=== PATIENT | male | born 2000 | race Caucasian/White ===

== ENCOUNTER 2022-10-13 00:21 | Emergency (ER) | payer OTHER ==
[~2022-10-13] VITALS: Ht 182.9 cm; Wt 70.5 kg
[2022-10-13 05:40] VITALS: BP 117/74; TEMP 97; O2SAT 100
[2022-10-13] MEDS ORDERED: MEDR4PAK PO (09:36)
[2022-10-13] MEDS ORDERED: CYCL-707 PO (09:36)
[2022-10-13] MEDS ORDERED: LIDO5DIS41 TD (09:36)
== END 2022-10-13 09:59 | disposition home or self-care (01) ==
LOC: M ED 00:21
DX: M54.50 Low back pain, unspecified (principal); M54.30 Sciatica, unspecified side; Z79.891 Long term (current) use of opiate analgesic; Z79.899 Other long term (current) drug therapy

== ENCOUNTER 2023-05-03 12:57 | Emergency (ER) | payer OTHER ==
[~2023-05-03] VITALS: Ht 185.4 cm; Wt 79.5 kg
[~2023-05-03 12:57] MED LIST: CYCL-707 PO; LIDO5DIS41 TD; MEDR4PAK PO
[2023-05-03 14:33] LABS: BASO % 0.1 % (0.0-1.0); EOS % 0.1 % (0.0-3.0); HEMATOCRIT 43.5 % (42.0-52.0); HEMOGLOBIN 14.9 g/dl (13.5-17.5); LYMPH # 0.8 10^3/uL (1.5-5.0); LYMPH % 9.9 % (24.0-44.0); MEAN CORPUSCULAR HEMOGLOBIN 30.7 pg (27.0-33.0); MEAN CORPUSCULAR HGB CONC 34.3 g/dl (32.0-36.5); MEAN CORPUSCULAR VOLUME 89.5 fl (80.0-96.0); MONO # 0.4 10^3/uL (0.0-0.8); MONO % 4.5 % (2.0-8.0); NEUTROPHILS # 6.8 10^3/uL (1.5-8.5); PLATELET COUNT, AUTOMATED 237 10^3/uL (150-450); RED BLOOD COUNT 4.86 10^6/uL (4.30-6.10); WHITE BLOOD COUNT 8.1 10^3/uL (4.0-10.0)
[2023-05-03 15:04] LABS: ETHYL ALCOHOL (ETHANOL) 0.162 % (0.000-0.010)
[2023-05-03 15:05] LABS: CPK CREATINE PHOSPHOKINASE 105 U/L (46-171)
[2023-05-03 15:06] LABS: ALBUMIN 4.5 G/DL (3.2-5.2); ALKALINE PHOSPHATASE 77 U/L (46-116); ALT/SGPT 33 U/L (7.0-40); AST/SGOT 16 U/L (<34); BILIRUBIN,DIRECT 0.2 MG/DL (<0.4); BILIRUBIN,TOTAL 0.6 MG/DL (0.3-1.2); BLOOD UREA NITROGEN 12 MG/DL (9-23); CALCIUM LEVEL 9.3 MG/DL (8.5-10.1); CARBON DIOXIDE LEVEL 27 MMOL/L (20-31); CHLORIDE LEVEL 104 MMOL/L (98-107); CREATININE FOR GFR 0.87 MG/DL (0.70-1.30); GLOMERULAR FILTRATION RATE > 60.0 (>60); GLUCOSE, FASTING 107 MG/DL (60-100); SALICYLATE LEVEL < 3.0 MG/DL (<30); SODIUM LEVEL 139 MMOL/L (136-145); TOTAL PROTEIN 7.4 G/DL (5.7-8.2)
[2023-05-03 15:08] LABS: THYROID STIMULATING HORMONE 1.899 uIU/ML (0.55-4.78)
[2023-05-03] MEDS: MULTIVITAMIN -ADULT INJECTION 10 ML, THIAMINE INJection 100 MG, FOLIC ACID 1 MG in NS 1... IV ONE (15:35)
[2023-05-03] MEDS: ONDANSETRON 4MG 2ML VIAL IV ONE (15:35)
[2023-05-03] MEDS: LR 1,000 ML IV ONE (15:37)
[2023-05-03] MEDS ORDERED: THIA100T7 PO (17:12)
[2023-05-03] MEDS ORDERED: FOLI1TAB11 PO (17:12)
[2023-05-03 17:13] LABS: AMPHETAMINES LEVEL URINE NEGATIVE (NEGATIVE); BARBITURATES URINE NEGATIVE (NEGATIVE); BENZODIAZEPINES URINE NEGATIVE (NEGATIVE); CANNABINOIDS URINE NEGATIVE (NEGATIVE); COCAINE METABOLITE URINE NEGATIVE (NEGATIVE); METHADONE URINE NEGATIVE (NEGATIVE); OPIATES URINE NEGATIVE (NEGATIVE); PHENCYCLIDINE URINE NEGATIVE (NEGATIVE)
[2023-05-03 17:28] VITALS: BP 112/58; TEMP 97.6; O2SAT 97
== END 2023-05-03 17:40 | disposition home or self-care (01) ==
LOC: M ED 12:57
DX: F10.129 Alcohol abuse with intoxication, unspecified (principal); Z79.899 Other long term (current) drug therapy
CPT/HCPCS: 80048; 80076; 80143; 80307; 82077; 82550; 83605; 84443; 85025; 94760; 96365; 96366; 96375; 99284; J2405; J3411

== ENCOUNTER 2023-05-05 10:25 | Emergency (ER) | payer OTHER ==
[~2023-05-05] VITALS: Ht 185.4 cm; Wt 74.4 kg
[~2023-05-05 10:25] MED LIST changes: +FOLI1TAB11 PO; +THIA100T7 PO
[2023-05-05 12:30] LABS: BASO % 0.6 % (0.0-1.0); EOS # 0.2 10^3/uL (0.0-0.5); EOS % 4.5 % (0.0-3.0); HEMOGLOBIN 15.4 g/dl (13.5-17.5); LYMPH # 2.2 10^3/uL (1.5-5.0); LYMPH % 41.4 % (24.0-44.0); MEAN CORPUSCULAR HGB CONC 34.2 g/dl (32.0-36.5); MEAN CORPUSCULAR VOLUME 90.7 fl (80.0-96.0); MONO # 0.6 10^3/uL (0.0-0.8); MONO % 10.7 % (2.0-8.0); NEUTROPHILS # 2.3 10^3/uL (1.5-8.5); NEUTROPHILS % 42.6 % (36.0-66.0); PLATELET COUNT, AUTOMATED 240 10^3/uL (150-450); RED BLOOD COUNT 4.96 10^6/uL (4.30-6.10); WHITE BLOOD COUNT 5.3 10^3/uL (4.0-10.0)
[2023-05-05 12:40] LABS: INR 1.2; PROTHROMBIN TIME 14.9 SECONDS (12.5-14.5)
[2023-05-05 12:41] LABS: PARTIAL THROMBOPLASTIN TIME 30.5 SECONDS (24.8-34.2)
[2023-05-05 12:53] LABS: LIPASE 28 U/L (12-53)
[2023-05-05 12:54] LABS: AMYLASE 58 U/L (30-118)
[2023-05-05 12:55] LABS: ALBUMIN 4.4 G/DL (3.2-5.2); ALKALINE PHOSPHATASE 87 U/L (46-116); ALT/SGPT 29 U/L (7.0-40); AST/SGOT 13 U/L (<34); BILIRUBIN,DIRECT 0.3 MG/DL (<0.4); BILIRUBIN,TOTAL 0.8 MG/DL (0.3-1.2); BLOOD UREA NITROGEN 15 MG/DL (9-23); CALCIUM LEVEL 9.5 MG/DL (8.5-10.1); CARBON DIOXIDE LEVEL 34 MMOL/L (20-31); CHLORIDE LEVEL 104 MMOL/L (98-107); CREATININE FOR GFR 0.87 MG/DL (0.70-1.30); GLOMERULAR FILTRATION RATE > 60.0 (>60); GLUCOSE, FASTING 78 MG/DL (60-100); POTASSIUM SERUM 3.5 MMOL/L (3.5-5.1); SODIUM LEVEL 143 MMOL/L (136-145); TOTAL PROTEIN 7.3 G/DL (5.7-8.2)
[2023-05-05 13:05] LABS: RSV AMPLIFICATION NEGATIVE (NEGATIVE)
[2023-05-05 14:00] VITALS: TEMP 96.7
[2023-05-05] MEDS ORDERED: ISOVUE-370 76% 100ML VIAL As Ordered ONE (14:05)
[2023-05-05 14:25] LABS: ETHYL ALCOHOL (ETHANOL) < 0.003 % (0.000-0.010)
[2023-05-05 14:26] LABS: SALICYLATE LEVEL < 3.0 MG/DL (<30)
[2023-05-05] MEDS: NS 1,000 ML IV ONE (14:33)
[2023-05-05] MEDS: LIDOCAINE 2% 5ML JELLY UROJET TOP ONE (15:29)
[2023-05-05 16:00] VITALS: BP 129/74; O2SAT 98
[2023-05-05 16:01] LABS: AMPHETAMINES LEVEL URINE NEGATIVE (NEGATIVE)
[2023-05-05 16:02] LABS: BARBITURATES URINE NEGATIVE (NEGATIVE); BENZODIAZEPINES URINE NEGATIVE (NEGATIVE); CANNABINOIDS URINE NEGATIVE (NEGATIVE); COCAINE METABOLITE URINE NEGATIVE (NEGATIVE); METHADONE URINE NEGATIVE (NEGATIVE); OPIATES URINE NEGATIVE (NEGATIVE); PHENCYCLIDINE URINE NEGATIVE (NEGATIVE)
== END 2023-05-05 17:02 | disposition home or self-care (01) ==
LOC: M ED 10:25
DX: R10.9 Unspecified abdominal pain (principal); E72.20 Disorder of urea cycle metabolism, unspecified; F32.A Depression, unspecified; F10.10 Alcohol abuse, uncomplicated; Z79.899 Other long term (current) drug therapy
CPT/HCPCS: 74177; 80048; 80076; 80143; 80307; 81001; 82077; 82140; 82150; 83605; 83690; 85025; 85610; 85730; 87631; 96360; 99285; Q9967